=== PATIENT | male | born 1980 | race Caucasian/White ===

== ENCOUNTER 2024-08-26 07:43 | Emergency (ER) | payer OTHER ==
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
[2024-08-26 08:50] VITALS: BP 174/107; TEMP 98; O2SAT 96
== END 2024-08-26 08:14 | disposition home or self-care (01) ==
LOC: ER 07:43
DX: R51.9 Headache, unspecified (principal); V49.40XA Driver injured in collision with unspecified motor vehicles in traffic accident, initial encounter
CPT/HCPCS: 99283